=== PATIENT | male | born 1955 | race African-American/Black ===

== ENCOUNTER 2018-11-27 16:46 | Inpatient (IN) ==
[2018-11-27] MEDS ORDERED: FUROSEMIDE 100 MG/10 ML VIAL IV STA (17:21)
[2018-11-27 18:07] LABS: Basophils % 0.2 % (0.0-0.8); Eosinophils # 0.1 10*3/uL (0.0-0.87); Eosinophils % 1.1 % (0.00-10.9); Hematocrit 23.8 VOL% (42.0-52.0); Hemoglobin 7.1 GM/DL (14.0-18.0); Immature Granulocytes % 0.6 %; Immature Granulocytes Absolute 0.05 #; Lymphocytes # 1.4 10*3/uL (1.4-4.0); Lymphocytes % 15.9 % (21.2-54.2); Mean Corpuscular HGB Conc 29.8 GM/DL (32-36); Mean Platelet Volume 11.2 FL (9.6-12.0); Monocytes % 7.5 % (1.7-12.7); Neutrophils % 74.7 % (38.7-73.9); Platelet Count 415 T/CUMM (130-400); Red Blood Count 3.55 MC/CUMM (3.8-5.5); Red Cell Distribution Width 18.6 % (9.3-17.3); White Blood Count 8.8 T/CUMM (4-12)
[2018-11-27 18:30] LABS: Alanine Aminotransferase 85 U/L (16-61); Alkaline Phosphatase 124 U/L (45-117); Aspartate Amino Transferase 78 U/L (0-37); Bilirubin,Total < 0.39 MG/DL (0.2-1.0); Blood Urea Nitrogen 95 MG/DL (7-18); Estimated Glom Filtration Rate 12 ML/MIN; Glucose 261 MG/DL (74-106); Osmolality,Calculated 307.1 MOS/KG (273-304); Total Protein 6.9 G/DL (6.4-8.3)
[2018-11-27] MEDS ORDERED: cefTRIAXone 1,000 MG in SODIUM CHLORIDE 0.9% 100 ML IV STA (19:15)
[2018-11-27 19:46] LABS: Apearance,Urine Slightly Hazy (Clear); Bacteria,Urine Occasional /HPF (Few); Bilirubin,Urine Negative (Negative); Blood, Urine Negative (Negative); Glucose,Urine (UA) 50 mg/dL (Negative); Hyaline Casts,Urine 3 /LPF (0-3); Ketones,Urine Negative (Negative); Mucus,Urine Occasional /LPF (Occasional); Nitrite,Urine Negative (Negative); Protein,Urine 100 MG/DL; RBC,Urine 1 /HPF (0-4); Squamous Epithelial Cell,Urine Occasional /HPF (0-10); Urine Color Yellow (Yellow); Urine Urobilinogen < 2.0 EU/DL (0.2-1.0); WBC,Urine <1 /HPF (0-6)
[2018-11-27] MEDS ORDERED: ONDANSETRON 4 MG/2 ML VIAL IV PRN (22:59)
[2018-11-27] MEDS ORDERED: INSULIN NPH/REGULAR 70/30 100 UNIT/ML SUBCUT SCH (23:30)
[2018-11-28] MEDS: ENOXAPARIN 30 MG/0.3 ML SYRINGE SUBCUT SCH ×2 (00:47→23:11)
[2018-11-28 05:27] LABS: Basophils % 0.4 % (0.0-0.8); Eosinophils # 0.2 10*3/uL (0.0-0.87); Hematocrit 21.9 VOL% (42.0-52.0); Hemoglobin 6.7 GM/DL (14.0-18.0); Immature Granulocytes % 0.7 %; Immature Granulocytes Absolute 0.06 #; Lymphocytes # 1.6 10*3/uL (1.4-4.0); Mean Corpuscular HGB Conc 30.6 GM/DL (32-36); Mean Corpuscular Volume 66.8 FL (87-102); Monocytes % 7.6 % (1.7-12.7); Neutrophils % 69.3 % (38.7-73.9); Platelet Count 342 T/CUMM (130-400); Red Blood Count 3.28 MC/CUMM (3.8-5.5); Red Cell Distribution Width 18.3 % (9.3-17.3)
[2018-11-28 05:47] LABS: Hypochromasia 1+; Microcytosis 1+; Platelet Estimate Adequate
[2018-11-28 05:51] LABS: Calcium 8.4 MG/DL (8.5-10.1)
[2018-11-28] MEDS ORDERED: SODIUM CHLORIDE 0.9% 1,000 ML IV PRN (07:58)
[2018-11-28] MEDS ORDERED: FLUTICASONE 50 MCG NASAL SPRAY 16 GM BOTTLE BOTH NARES PRN (09:00)
[2018-11-28] MEDS: AZITHROMYCIN 250 MG TABLET PO SCH (09:26)
[2018-11-28] MEDS: carvediloL 25 MG TABLET PO SCH ×2 (09:26→16:50)
[2018-11-28] MEDS: MINOXIDIL 2.5 MG TABLET PO SCH ×2 (09:26→21:39)
[2018-11-28] MEDS: INSULIN NPH/REGULAR 70/30 100 UNIT/ML SUBCUT SCH ×3 (09:26→16:51)
[2018-11-28] MEDS: ASPIRIN EC 81 MG TABLET PO SCH (09:27)
[2018-11-28] MEDS: PANTOPRAZOLE 40 MG TABLET PO SCH ×2 (09:27)
[2018-11-28] MEDS: FERROUS SULFATE 325 MG TABLET PO SCH ×3 (09:27→21:39)
[2018-11-28] MEDS: FUROSEMIDE 40 MG/4 ML VIAL IV SCH (09:27)
[2018-11-28] MEDS: IRON SUCROSE 200 MG in SODIUM CHLORIDE 0.9% 100 ML IV SCH (09:56)
[2018-11-28 15:13] LABS: Hematocrit 25.6 VOL% (42.0-52.0)
[2018-11-28] MEDS: cefTRIAXone 2,000 MG in SYRINGE 1 EACH IV SCH (19:33)
[2018-11-28] MEDS: ROSUVASTATIN 20 MG TABLET PO SCH (21:39)
[2018-11-28] MEDS: INSULIN GLARGINE 100 UNIT/ML SUBCUT SCH (21:42)
[2018-11-29 07:25] LABS: Calcium 8.7 MG/DL (8.5-10.1); Osmolality,Calculated 304.5 MOS/KG (273-304)
[2018-11-29] MEDS: AZITHROMYCIN 250 MG TABLET PO SCH (10:00)
[2018-11-29] MEDS: INSULIN NPH/REGULAR 70/30 100 UNIT/ML SUBCUT SCH ×3 (10:00→16:48)
[2018-11-29] MEDS: MINOXIDIL 2.5 MG TABLET PO SCH ×2 (10:01→21:05)
[2018-11-29] MEDS: FERROUS SULFATE 325 MG TABLET PO SCH ×3 (10:02→21:05)
[2018-11-29] MEDS: PANTOPRAZOLE 40 MG TABLET PO SCH ×2 (10:02→12:50)
[2018-11-29] MEDS: ASPIRIN EC 81 MG TABLET PO SCH (10:02)
[2018-11-29] MEDS: carvediloL 25 MG TABLET PO SCH ×2 (10:03→16:48)
[2018-11-29] MEDS: IRON SUCROSE 200 MG in SODIUM CHLORIDE 0.9% 100 ML IV SCH (10:04)
[2018-11-29 10:36] LABS: Basophils # 0.1 10*3/uL (0.0-0.2); Basophils % 0.6 % (0.0-0.8); Eosinophils # 0.3 10*3/uL (0.0-0.87); Eosinophils % 2.8 % (0.00-10.9); Hematocrit 27.9 VOL% (42.0-52.0); Hemoglobin 8.5 GM/DL (14.0-18.0); Immature Granulocytes % 0.7 %; Immature Granulocytes Absolute 0.06 #; Lymphocytes # 1.4 10*3/uL (1.4-4.0); Lymphocytes % 16.2 % (21.2-54.2); Mean Corpuscular HGB Conc 30.5 GM/DL (32-36); Mean Corpuscular Volume 68.6 FL (87-102); Mean Platelet Volume 10.5 FL (9.6-12.0); Monocytes % 7.8 % (1.7-12.7); Neutrophils % 71.9 % (38.7-73.9); Platelet Count 364 T/CUMM (130-400); Red Blood Count 4.07 MC/CUMM (3.8-5.5); Red Cell Distribution Width 19.7 % (9.3-17.3); White Blood Count 8.8 T/CUMM (4-12)
[2018-11-29] MEDS: FUROSEMIDE 40 MG/4 ML VIAL IV SCH (10:39)
[2018-11-29 10:58] LABS: Hypochromasia 1+; Microcytosis 1+; Platelet Estimate Adequate
[2018-11-29] MEDS: cefTRIAXone 2,000 MG in SYRINGE 1 EACH IV SCH (20:58)
[2018-11-29] MEDS: ROSUVASTATIN 20 MG TABLET PO SCH (21:05)
[2018-11-29] MEDS: INSULIN GLARGINE 100 UNIT/ML SUBCUT SCH (21:11)
[2018-11-29] MEDS: ENOXAPARIN 30 MG/0.3 ML SYRINGE SUBCUT SCH (22:26)
[2018-11-30 06:07] LABS: Basophils # 0.1 10*3/uL (0.0-0.2); Basophils % 0.6 % (0.0-0.8); Eosinophils # 0.3 10*3/uL (0.0-0.87); Eosinophils % 3.1 % (0.00-10.9); Hematocrit 25.2 VOL% (42.0-52.0); Hemoglobin 7.6 GM/DL (14.0-18.0); Immature Granulocytes % 0.6 %; Immature Granulocytes Absolute 0.05 #; Lymphocytes # 1.7 10*3/uL (1.4-4.0); Lymphocytes % 20.7 % (21.2-54.2); Mean Corpuscular HGB Conc 30.2 GM/DL (32-36); Mean Corpuscular Volume 69.4 FL (87-102); Mean Platelet Volume 10.4 FL (9.6-12.0); Monocytes % 8.9 % (1.7-12.7); Neutrophils % 66.1 % (38.7-73.9); Platelet Count 353 T/CUMM (130-400); Red Blood Count 3.63 MC/CUMM (3.8-5.5); Red Cell Distribution Width 19.2 % (9.3-17.3); White Blood Count 8.2 T/CUMM (4-12)
[2018-11-30 06:30] LABS: Calcium 8.7 MG/DL (8.5-10.1); Osmolality,Calculated 302.3 MOS/KG (273-304)
[2018-11-30 06:33] LABS: Helmet Cells Few; Hypochromasia 2+; Microcytosis 2+; Platelet Estimate Normal; Schistocytes Few; Target Cells Few; Tear Drop Cells Few
[2018-11-30 06:34] LABS: Poikilocytosis 1+
[2018-11-30 06:35] LABS: Polychromasia Few
[2018-11-30] MEDS: IRON SUCROSE 200 MG in SODIUM CHLORIDE 0.9% 100 ML IV SCH (09:19)
[2018-11-30] MEDS: AZITHROMYCIN 250 MG TABLET PO SCH (09:20)
[2018-11-30] MEDS: FERROUS SULFATE 325 MG TABLET PO SCH ×3 (09:20→20:47)
[2018-11-30] MEDS: MINOXIDIL 2.5 MG TABLET PO SCH ×2 (09:21→20:47)
[2018-11-30] MEDS: ASPIRIN EC 81 MG TABLET PO SCH (09:21)
[2018-11-30] MEDS: DOCUSATE SODIUM 100 MG CAPSULE PO PRN (09:21)
[2018-11-30] MEDS: PANTOPRAZOLE 40 MG TABLET PO SCH ×2 (09:21→10:02)
[2018-11-30] MEDS: carvediloL 25 MG TABLET PO SCH ×2 (09:22→17:26)
[2018-11-30] MEDS: FUROSEMIDE 40 MG/4 ML VIAL IV SCH (09:22)
[2018-11-30] MEDS: INSULIN NPH/REGULAR 70/30 100 UNIT/ML SUBCUT SCH ×3 (10:03→17:26)
[2018-11-30] MEDS ORDERED: INSULIN GLARGINE 100 UNIT/ML SUBCUT SCH (10:06)
[2018-11-30] MEDS: cefTRIAXone 2,000 MG in SYRINGE 1 EACH IV SCH (20:37)
[2018-11-30] MEDS: ROSUVASTATIN 20 MG TABLET PO SCH (20:47)
[2018-11-30] MEDS: ENOXAPARIN 30 MG/0.3 ML SYRINGE SUBCUT SCH (22:48)
[2018-12-01 06:30] LABS: Basophils % 0.5 % (0.0-0.8); Eosinophils # 0.3 10*3/uL (0.0-0.87); Eosinophils % 3.2 % (0.00-10.9); Hematocrit 25.2 VOL% (42.0-52.0); Hemoglobin 7.7 GM/DL (14.0-18.0); Immature Granulocytes % 0.5 %; Immature Granulocytes Absolute 0.04 #; Lymphocytes # 1.8 10*3/uL (1.4-4.0); Lymphocytes % 20.8 % (21.2-54.2); Mean Corpuscular HGB Conc 30.6 GM/DL (32-36); Mean Platelet Volume 11.2 FL (9.6-12.0); Monocytes % 9.6 % (1.7-12.7); Neutrophils % 65.4 % (38.7-73.9); Platelet Count 416 T/CUMM (130-400); Red Blood Count 3.65 MC/CUMM (3.8-5.5); Red Cell Distribution Width 19.3 % (9.3-17.3); White Blood Count 8.5 T/CUMM (4-12)
[2018-12-01 06:50] LABS: Calcium 8.8 MG/DL (8.5-10.1); Osmolality,Calculated 300.4 MOS/KG (273-304)
[2018-12-01 06:55] LABS: % Iron Saturation 35.6 % (18-50); Ferritin 528.3 ng/ml (26-388)
[2018-12-01 06:59] LABS: Folate 11.6 NG/ML (5.4-24.0); Vitamin B12 501 PG/ML (211-911)
[2018-12-01 07:13] LABS: Platelet Estimate Normal; Polychromasia Few
[2018-12-01 07:24] LABS: Parathyroid Hormone Intact 364.6 PG/ML (18.4-80.1)
[2018-12-01 07:45] LABS: Sedimentation Rate-Westergren 98 MM/HR (0-20)
[2018-12-01] MEDS: PANTOPRAZOLE 40 MG TABLET PO SCH (09:02)
[2018-12-01] MEDS: AZITHROMYCIN 250 MG TABLET PO SCH (09:02)
[2018-12-01] MEDS: ASPIRIN EC 81 MG TABLET PO SCH (09:03)
[2018-12-01] MEDS: MINOXIDIL 2.5 MG TABLET PO SCH ×2 (09:03→20:34)
[2018-12-01] MEDS: FERROUS SULFATE 325 MG TABLET PO SCH ×3 (09:04→20:35)
[2018-12-01] MEDS: INSULIN NPH/REGULAR 70/30 100 UNIT/ML SUBCUT SCH ×3 (09:04→17:56)
[2018-12-01] MEDS: carvediloL 25 MG TABLET PO SCH ×2 (09:04→17:52)
[2018-12-01] MEDS: DOCUSATE SODIUM 100 MG CAPSULE PO PRN (09:04)
[2018-12-01] MEDS: FUROSEMIDE 40 MG/4 ML VIAL IV SCH (09:05)
[2018-12-01] MEDS ORDERED: ALUMINUM/MAGNES/SIMETH MAX STR 30 ML UDCUP PO PRN (09:54)
[2018-12-01 11:31] LABS: Troponin I 0.025 NG/ML (0.00-0.045)
[2018-12-01] MEDS ORDERED: INSULIN GLARGINE 100 UNIT/ML SUBCUT SCH (12:00)
[2018-12-01 14:18] LABS: Troponin I 0.021 NG/ML (0.00-0.045)
[2018-12-01 16:35] LABS: Troponin I 0.021 NG/ML (0.00-0.045)
[2018-12-01] MEDS: ENOXAPARIN 30 MG/0.3 ML SYRINGE SUBCUT SCH (20:33)
[2018-12-01] MEDS: ROSUVASTATIN 20 MG TABLET PO SCH (20:34)
[2018-12-01] MEDS: cefTRIAXone 2,000 MG in SYRINGE 1 EACH IV SCH (20:34)
[2018-12-01] MEDS: INSULIN GLARGINE 100 UNIT/ML SUBCUT SCH (20:49)
[2018-12-02 05:00] LABS: Basophils # 0.1 10*3/uL (0.0-0.2); Basophils % 0.6 % (0.0-0.8); Eosinophils # 0.3 10*3/uL (0.0-0.87); Eosinophils % 3.5 % (0.00-10.9); Hematocrit 27.1 VOL% (42.0-52.0); Hemoglobin 8.2 GM/DL (14.0-18.0); Immature Granulocytes % 0.4 %; Immature Granulocytes Absolute 0.03 #; Lymphocytes # 1.9 10*3/uL (1.4-4.0); Lymphocytes % 22.3 % (21.2-54.2); Mean Corpuscular HGB Conc 30.3 GM/DL (32-36); Mean Corpuscular Volume 69.5 FL (87-102); Mean Platelet Volume 10.3 FL (9.6-12.0); Monocytes % 9.1 % (1.7-12.7); Neutrophils % 64.1 % (38.7-73.9); Platelet Count 333 T/CUMM (130-400); Red Cell Distribution Width 19.9 % (9.3-17.3); White Blood Count 8.3 T/CUMM (4-12)
[2018-12-02 05:20] LABS: Calcium 9.3 MG/DL (8.5-10.1); Osmolality,Calculated 303.1 MOS/KG (273-304)
[2018-12-02 05:23] LABS: Hypochromasia 1+; Platelet Estimate Adequate
[2018-12-02 05:24] LABS: Microcytosis 1+
[2018-12-02] MEDS: INSULIN NPH/REGULAR 70/30 100 UNIT/ML SUBCUT SCH ×3 (08:21→16:41)
[2018-12-02 10:16] LABS: Hemoglobin A1 (Alkaline) 97.1 % (96.5-98.5)
[2018-12-02 10:17] LABS: Hemoglobin A2 (Alkaline) 2.9 % (1.5-3.5)
[2018-12-02] MEDS: PANTOPRAZOLE 40 MG TABLET PO SCH (10:34)
[2018-12-02] MEDS: AZITHROMYCIN 250 MG TABLET PO SCH (10:34)
[2018-12-02] MEDS: FERROUS SULFATE 325 MG TABLET PO SCH ×3 (10:34→22:30)
[2018-12-02] MEDS: MINOXIDIL 2.5 MG TABLET PO SCH ×2 (10:35→22:30)
[2018-12-02] MEDS: FUROSEMIDE 40 MG/4 ML VIAL IV SCH (10:35)
[2018-12-02] MEDS: ASPIRIN EC 81 MG TABLET PO SCH (10:35)
[2018-12-02] MEDS: carvediloL 25 MG TABLET PO SCH ×2 (10:35→16:41)
[2018-12-02] MEDS: INSULIN GLARGINE 100 UNIT/ML SUBCUT SCH (22:29)
[2018-12-02] MEDS: ROSUVASTATIN 20 MG TABLET PO SCH (22:29)
[2018-12-02] MEDS: cefTRIAXone 2,000 MG in SYRINGE 1 EACH IV SCH (22:30)
[2018-12-02] MEDS: ENOXAPARIN 30 MG/0.3 ML SYRINGE SUBCUT SCH (22:30)
[2018-12-03 06:22] LABS: Basophils % 0.6 % (0.0-0.8); Eosinophils # 0.2 10*3/uL (0.0-0.87); Eosinophils % 3.1 % (0.00-10.9); Hematocrit 27.8 VOL% (42.0-52.0); Hemoglobin 8.4 GM/DL (14.0-18.0); Immature Granulocytes % 0.6 %; Immature Granulocytes Absolute 0.04 #; Lymphocytes # 1.9 10*3/uL (1.4-4.0); Mean Corpuscular HGB Conc 30.2 GM/DL (32-36); Mean Corpuscular Volume 69.3 FL (87-102); Mean Platelet Volume 11.2 FL (9.6-12.0); Neutrophils % 58.7 % (38.7-73.9); Platelet Count 339 T/CUMM (130-400); Red Blood Count 4.01 MC/CUMM (3.8-5.5); Red Cell Distribution Width 19.7 % (9.3-17.3); White Blood Count 7.1 T/CUMM (4-12)
[2018-12-03 06:51] LABS: Hypochromasia 1+; Ovalocytes Slight; Platelet Estimate Adequate
[2018-12-03 06:52] LABS: Microcytosis 1+
[2018-12-03 06:55] LABS: Calcium 9.1 MG/DL (8.5-10.1); Osmolality,Calculated 296.5 MOS/KG (273-304)
[2018-12-03] MEDS ORDERED: INSULIN GLARGINE 100 UNIT/ML SUBCUT SCH (07:21)
[2018-12-03] MEDS ORDERED: CEFDINIR 300 MG CAPSULE PO SCH (09:00)
[2018-12-03] MEDS ORDERED: CALCITRIOL 0.25 MCG CAPSULE PO SCH (09:00)
[2018-12-03] MEDS: MINOXIDIL 2.5 MG TABLET PO SCH (09:20)
[2018-12-03] MEDS: carvediloL 25 MG TABLET PO SCH (09:21)
[2018-12-03] MEDS: FUROSEMIDE 40 MG/4 ML VIAL IV SCH (09:21)
[2018-12-03] MEDS: PANTOPRAZOLE 40 MG TABLET PO SCH (09:21)
[2018-12-03] MEDS: ASPIRIN EC 81 MG TABLET PO SCH (09:21)
[2018-12-03] MEDS: FERROUS SULFATE 325 MG TABLET PO SCH (09:21)
[2018-12-03] MEDS: INSULIN NPH/REGULAR 70/30 100 UNIT/ML SUBCUT SCH ×2 (09:22→12:50)
[2018-12-03 12:19] VITALS: BP 149/63
== END 2018-12-03 15:28 | disposition home or self-care (01) | DRG 682 ==
LOC: EDUNIT# → EDBD → N.ED 16:46 → N.EDINP 22:59 → N.TELEN 23:36
PROVIDERS: ADMIT Hospitalist; ATTEND Hospitalist